=== PATIENT | female | born 1995 | race African-American/Black ===

== ENCOUNTER 2022-03-09 06:17 | Emergency (ER) | payer OTHER, SELFPAY ==
[2022-03-09 06:54] VITALS: RESP 18; TEMP 99.2; BMI 27.4
[2022-03-09] MEDS ORDERED: ACETAMINOPHEN 500 MG TABLET (FP) PO ONE (07:12)
[2022-03-09 08:09] VITALS: PULSE 84
[2022-03-09] MEDS ORDERED: amLODIPine BESYLATE 5 MG TABLET (FP) PO ONE (08:12)
[2022-03-09] MEDS ORDERED: amLODIPine BESYLATE 5 MG TABLET (FP) ONE (08:18)
[2022-03-09 08:44] VITALS: BP 137/77
== END 2022-03-09 08:49 | disposition home or self-care (01) ==
LOC: JER 06:17
DX: J09.X2 Influenza due to identified novel influenza A virus with other respiratory manifestations (principal); J06.9 Acute upper respiratory infection, unspecified
CPT/HCPCS: 0241U-QW; 99283-25

== ENCOUNTER 2023-03-21 09:24 | Emergency (ER) | payer OTHER ==
[2023-03-21 09:43] VITALS: PULSE 62; RESP 18
[2023-03-21 10:24] VITALS: TEMP 97.2; BMI 26.5
[2023-03-21] MEDS ORDERED: MAG HYDROX/AL HYDROX/SIMETH 30 ML UNIT-DOSE CUP PO ONE (10:46)
[2023-03-21] MEDS ORDERED: IBUPROFEN 600 MG TABLET (FP) PO ONE ×2 (10:47→10:51)
[2023-03-21] MEDS ORDERED: MAG HYDROX/AL HYDROX/SIMETH 30 ML UNIT-DOSE CUP ONE (10:51)
[2023-03-21 11:04] VITALS: BP 156/89
[2023-03-21 11:51] LABS: EPI CELLS 18 /uL (0-25.1); HCG,QUALITATIVE URINE Negative; HYALINE CASTS 1 /uL (0-3.1); PH,URINE 6.5 (5.0-8.0); URINE APPEARANCE CLEAR; URINE BACTERIA 195 /uL (0-1359); URINE BILIRUBIN NEGATIVE (NEGATIVE); URINE COLOR YELLOW; URINE GLUCOSE (UA) NEGATIVE (NEGATIVE); URINE KETONE TRACE (NEGATIVE); URINE LEUK ESTERASE TRACE (NEGATIVE); URINE NITRITE NEGATIVE (NEGATIVE); URINE PROTEIN NEGATIVE (NEGATIVE); URINE RBC 9 /uL (0-23.9); URINE UROBILINOGEN 0.2 mg/dL (0.2-1.0); URINE WBC 16 /uL (0-25.8)
== END 2023-03-21 13:49 | disposition home or self-care (01) ==
LOC: JER 09:24
DX: R07.9 Chest pain, unspecified (principal); I10 Essential (primary) hypertension
CPT/HCPCS: 0241U-QW; 71046-TC-FY; 81003; 84703; 93005; 93010; 99285-25

== ENCOUNTER 2023-06-26 06:06 | Emergency (ER) | payer OTHER ==
[2023-06-26 06:23] VITALS: TEMP 97.4; BMI 29.2
[2023-06-26] MEDS: CARBAMIDE PEROXIDE 6.5% OTIC 15 ML BOTTLE AD ONE (08:17)
[2023-06-26 09:46] VITALS: BP 168/100; PULSE 63; RESP 18
== END 2023-06-26 09:46 | disposition home or self-care (01) ==
LOC: JER 06:06
DX: S00.411A Abrasion of right ear, initial encounter (principal); H61.21 Impacted cerumen, right ear; W50.4XXA Accidental scratch by another person, initial encounter
CPT/HCPCS: 99283-25